=== PATIENT | female | born 2000 | race Two or more races ===

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

== ENCOUNTER 2021-06-01 02:50 | Emergency (ER) | payer MEDICAID ==
[~2021-06-01] VITALS: Ht 167.6 cm; Wt 70.8 kg
[2021-06-01 04:05] VITALS: BP 114/75
== END 2021-06-02 04:22 | disposition home or self-care (01) ==
LOC: ER 02:52
DX: N39.0 Urinary tract infection, site not specified (principal); Z79.899 Other long term (current) drug therapy
CPT/HCPCS: 81002; 81025

== ENCOUNTER 2023-09-30 14:05 | Emergency (ER) | payer MEDICAID ==
[~2023-09-30] VITALS: Ht 167.6 cm; Wt 70.6 kg
[~2023-09-30 14:05] MED LIST changes: +CIPR-173 PO
[2023-09-30 17:00] VITALS: BP 115/84; PULSE 89; RESP 15; TEMP 97.5; O2SAT 100
[2023-09-30] MEDS ORDERED: CEPH500T PO (17:11)
[2023-09-30] MEDS ORDERED: ACET1CAP14 PO (17:11)
[2023-09-30] MEDS: cefTRIAXone SOD 1,000 MG VL IM ONE (17:25)
== END 2023-09-30 17:28 | disposition home or self-care (01) ==
LOC: ER 14:05
DX: N12 Tubulo-interstitial nephritis, not specified as acute or chronic (principal); Z32.02 Encounter for pregnancy test, result negative
CPT/HCPCS: 96372; 99283; J0696

== ENCOUNTER 2025-01-18 13:28 | Emergency (ER) | payer MEDICAID ==
[~2025-01-18] VITALS: Ht 167.6 cm; Wt 71.2 kg
[~2025-01-18 13:28] MED LIST changes: +ACET1CAP14 PO; +CEPH500T PO
[2025-01-18 13:37] VITALS: BP 132/85; RESP 16; TEMP 98
--- NOTE | 2025-01-18 13:41 | ED.PDOC ---
History of Present Illness HPI Comments 24-year-old female with no reported PMHx presents with a chief complaint of pelvic pain x 3 months. Patient states that she has been having constant pelvic pain, describes as sharp, and rates her pain a 6/10. Patient mentions that she went to her PCP and was prescribed antibiotics for a possible UTI, but states that it did not help and was prescribed a different antibiotic for a second round. Patient denies any symptoms other than the pelvic pain. Chief Complaint: Pelvic Pain Time Seen by MD: 13:34 Primary Care Provider: NONE Reviewed Notes: Nurses Notes, Medications, Allergies Allergies: Coded Allergies: No Known Drug Allergy (Verified Allergy, Unknown, 12/03/22) Home Meds Active Scripts Acetaminophen (Tylenol) 325 Mg Cap, 325 MG PO Q4HPRN PRN, #30 CAP 0 Refills Take 1-2 caps po q4h prn for pain (Do not exceed 3,000mg of acetaminophen in 24 hours) Prov:RILEY KIM DELI WORKER 09/30/23 Cephalexin Monohydrate (Cephalexin) 500 Mg Tab, 1 TAB PO QID for 10 Days, #40 TAB 0 Refills Prov:RILEY KIM DELI WORKER 09/30/23 Ciprofloxacin Hcl (Cipro) 500 Mg Tab, 1 TAB PO BID, #20 TAB Prov:ESSIE LUJAN MD 01/19/22 Reported Medications Vit W/ Ferrous Fumara ( One Daily) Daily Tab, 1 TAB PO DAILY, #90 TAB 3 Refills 05/25/17 Information Source: Patient Mode of Arrival: Ambulatory Severity: Moderate Timing: Months Duration: Since onset Prehospital treatment: None Past Medical History PAST MEDICAL HISTORY: Denies Surgical History: Denies all surgeries PRESS BOX CUSTODIAN History: No Pertinent PRESS BOX CUSTODIAN History Family History Family History: Reviewed,noncontributory to illness, No family hx of Cancer, No family hx of DM, No family hx of Heart rg, No family hx of HTN, No family hx ofKidney rg, No family hx of Liver rg, No family hx of Lung rg, No family hx of Stroke Social History Smoker: Non-Smoker Alcohol: Denies ETOH Use Drugs: Denies Drug Use Lives In: Home Constitutional: denies: chills, diaphoresis, fatigue, fever, malaise, sweats, weakness, others EENTM: denies: blurred vision, double vision, ear bleeding, ear discharge, ear drainage, ear pain, ear ringing, eye pain, eye redness, hearing loss, mouth pain, mouth swelling, nasal discharge, nose bleeding, nose congestion, nose pain, photophobia, tearing, throat pain, throat swelling, voice changes, others Respiratory: denies: cough, hemoptysis, orthopnea, SOB at rest, shortness of breath, SOB with excertion, stridor, wheezing, others Cardiovascular: denies: chest pain, dizzy spells, diaphoresis, Dyspnea on exertion, edema, irregular heart beat, left arm pain, lightheadedness, palpitations, PND, syncope, others Gastrointestinal: reports: abdominal pain; denies: abdomen distended, blood streaked bowels, constipated, diarrhea, dysphagia, difficulty swallowing, hematemesis, melena, nausea, poor appetite, poor fluid intake, rectal bleeding, rectal pain, vomiting, others Genitourinary: denies: abnormal vagina bleeding, burning, dyspareunia, dysuria, flank pain, frequency, hematuria, incontinence, pain, , vagina discharge, urgency, others Neurological: denies: dizziness, fainting, headache, left sided numbness, left sided weakness, numbness, paresthesia, pre-existing deficit, right sided numbness, right sided weakness, seizure, speech problems, tingling, tremors, weakness, others Musculoskeletal: denies: back pain, gout, joint pain, joint swelling, muscle pain, muscle stiffness, neck pain, others Integumetry: denies: bruises, change in color, change in hair/nails, dryness, laceration, lesions, lumps, rash, wounds, others Allergic/Immunocompromised: denies: Difficulty Healing, Frequent Infections, Hives, Itching, others Hematologic/Lymphatic: denies: anemia, blood clots, easy bleeding, easy bruising, swollen glands, others Endocrine: denies: excessive hunger, excessive sweating, excessive thirst, excessive urination, flushing, intolerance to cold, intolerance to heat, unexplained weight gain, unexplained weight loss, others Psychiatric: denies: anxiety, bipolar disorder, depression, hopeless, panic disorder, schizophrenia, sleepless, suicidal, others All Other Systems: Reviewed and Negative Physical Exam General Appearance: No Apparent Distress HEENT: Normal ENT Inspection, Pharynx Normal, TMs Normal Neck: Full Range of Motion, Non-Tender, Normal, Normal Inspection Respiratory: Chest Non-Tender, Lungs Clear, No Accessory Muscle Use, No Respiratory Distress, Normal Breath Sounds Cardiovascular: No Edema, No JVD, No Murmur, No Gallop, Normal Peripheral Pulses, Regular Rate/Rhythm Breast Exam: Deferred Gastrointestinal: No Organomegaly, Non Tender, No Pulsatile Mass, Normal Bowel Sounds, Soft Genitalia: Deferred Pelvic: Deferred Rectal: Deferred Extremities: No calf tenderness, Normal capillary refill, Normal inspection, Normal range of motion, Non-tender, No pedal edema Musculoskeletal : Apperance: Normal Neurologic: Alert, organizational effectiveness consultant II-XII nml as Tested, No Motor Deficits, Normal Affect, Normal Mood, No Sensory Deficits Cerebellar Function: Normal Reflexes: Normal Skin: Dry, Normal Color, Warm Lymphatic: No Adenopathy Was a procedure done? Was a procedure done?: No Differential Dx Considerations may include: Pelvic pain, UTI, generalized weakness X-Ray, Labs, Meds, VS Vital Signs Date Time Temp Pulse Resp B/P (MAP) Pulse Ox O2 Delivery O2 Flow Rate FiO2 01/18/25 13:37 98.0 89 16 132/85 (101) 98 98.0 Lab Test 01/18/25 13:38 Range/Units Urine Color Light-yellow Yellow Urine Clarity Clear Clear Urine pH 5.0 5.0-9.0 Urine Specific [place] 1.022 1.001-1.035 Urine Protein Negative Negative Urine Ketones Negative Negative Urine Blood Negative Negative /uL Urine Nitrite Negative Negative Urine Bilirubin Negative Negative Urine Urobilinogen Normal Negative mg/dL Urine Leukocyte Esterase Negative Negative /uL Urine RBC 1 0 - 4 /hpf Urine Microscopic WBC < 1 0-5 /HPF Urine Squamous Epithelial Cells Few <5 /hpf Urine Bacteria None seen None Seen /hpf Urine Mucus Few None Seen Urine Glucose Normal Normal mg/dL Urine Test Negative Negative The urine test is negative for infection The test is negative The patient is being discharged The patient will return to the emergency department's the condition worsens. Time of 1ST Reevaluation: 14:04 Reevaluation 1ST: Unchanged Patient Education/Counseling: Diagnosis, Treatment, Prognosis, Need For Follow Up Family Education/Counseling: No Family Present Departure 1 Departure Time of Disposition: 14:24 Impression: Primary Impression: Pelvic pain Disposition: 01 HOME / SELF CARE / HOMELESS Condition: Fair Discharged With: Self Critical Care Note Critical Care Time?: No Stability Stability form required: No Heart Score Heart Score: Heart Score Response (Comments) Value History N/A 0 EKG N/A 0 Age N/A 0 Risk Factors N/A 0 Troponin N/A 0 Total 0 I personally scribed for ESSIE LUJAN MD ([email or web address]) on 01/18/25 at 13:41. Electronically submitted by Gene Malone ([email or web address]). ESSIE LUJAN MD January 18, 2025 13:41
[2025-01-18 14:06] LABS: Urine Bacteria None Seen /hpf (None Seen)
[2025-01-18 14:18] LABS: Urine Blood Negative /uL (Negative); Urine Clarity Clear (Clear); Urine Color Light-Yellow (Yellow); Urine Mucus FEW (None Seen); Urine Protein, UAD Negative (Negative); Urine Specific Gravity 1.022 (1.001-1.035); Urine Squamous Epithelial Cell FEW /hpf (<5); Urine Urobilinogen Normal (Negative); Urine WBC < 1 /HPF (0-5)
[2025-01-18 14:52] VITALS: PULSE 89; O2SAT 98
== END 2025-01-18 14:46 | disposition home or self-care (01) ==
LOC: ER 13:35
DX: R10.2 Pelvic and perineal pain (principal)
CPT/HCPCS: 81001; 81025